=== PATIENT | female | born 1955 | race Two or more races ===

== ENCOUNTER 2020-02-23 13:29 | Inpatient (IN) | payer MEDICARE, MEDICAID ==
[~2020-02-23] VITALS: Ht 160 cm; Wt 88.0 kg
[2020-02-23] MEDS ORDERED: SODIUM CHLORIDE 0.9% 1,000 ML IV ONE (14:57)
[2020-02-23] MEDS ORDERED: KETOROLAC 30MG/ML VIAL IV STA (14:57)
[2020-02-23] MEDS ORDERED: ONDANSETRON HCL 4MG/2ML INJ IV STA (14:57)
[2020-02-23 15:27] LABS: BASOPHILS % 0.7 % (0.0-2.0); EOSINOPHILS % 1.3 % (0.0-5.0); HEMATOCRIT. 40.6 % (36.0-48.0); HEMOGLOBIN. 12.7 g/dL (12.0-16.0); LYMPHOCYTES % 36.9 % (20.0-50.0); MEAN CORPUSCULAR HEMOGLOBIN 22.3 pg (28.0-32.0); MEAN CORPUSCULAR VOLUME 71.3 fL (81.0-99.0); MEAN PLATELET VOLUME 9.3 fl (7.4-10.4); MONOCYTES % 4.6 % (2.0-8.0); NEUTROPHILS % 56.5 % (40.0-76.0); PLATELET 153 x1000/uL (130-400); RED BLOOD CELL COUNT 5.69 mill/uL (4.2-5.4); RED CELL DISTRIBUTION WIDTH 14.5 % (11.6-14.6)
[2020-02-23 15:30] LABS: CHLORIDE 104 mEq/L (98-107)
[2020-02-23 15:33] LABS: PARTIAL THROMBOPLASTIN TIME 28.7 sec (23.4-31.0); PROTHROMBIN TIME 11.3 sec (9.6-11.0)
[2020-02-23] MEDS ORDERED: IOHEXOL-350 100 ML BOTTLE ONE (16:53)
[2020-02-23] MEDS ORDERED: ASPIRIN 325MG EC TABLET PO ONE (18:00)
[2020-02-23] MEDS ORDERED: KETOROLAC 15MG/ML VIAL IV PRN (19:45)
[2020-02-23] MEDS ORDERED: ONDANSETRON HCL 4MG/2ML INJ IV PRN (19:45)
[2020-02-23 22:52] VITALS: BP 157/76
[2020-02-24] VITALS (14 sets, daily range): BP systolic 120–168; BP diastolic 62–88
[2020-02-24] MEDS: ACETAMINOPHEN 325MG TABLET PO PRN (01:29)
[2020-02-24] MEDS: ENOXAPARIN 40MG/0.4ML SYR SUBCUT SCH (08:43)
[2020-02-24] MEDS: ASPIRIN 81MG TABLET PO SCH (08:43)
[2020-02-24 08:50] LABS: CHLORIDE 104 mEq/L (98-107)
[2020-02-24 08:51] LABS: BASOPHILS % 0.4 % (0.0-2.0); EOSINOPHILS % 2.1 % (0.0-5.0); HEMATOCRIT. 41.2 % (36.0-48.0); LYMPHOCYTES % 36.4 % (20.0-50.0); MEAN CORPUSCULAR HEMOGLOBIN 22.3 pg (28.0-32.0); MEAN CORPUSCULAR VOLUME 70.9 fL (81.0-99.0); MEAN PLATELET VOLUME 9.4 fl (7.4-10.4); MONOCYTES % 7.1 % (2.0-8.0); PLATELET 147 x1000/uL (130-400); RED BLOOD CELL COUNT 5.81 mill/uL (4.2-5.4); RED CELL DISTRIBUTION WIDTH 14.4 % (11.6-14.6)
[2020-02-24 16:55] LABS: FOLIC ACID (FOLATE) SERUM 14.9 ng/mL (>5.38)
[2020-02-24] MEDS: AMITRIPTYLINE 10MG TABLET PO SCH (21:24)
[2020-02-24] MEDS: ZOLPIDEM TARTRATE 5MG TABLET PO PRN (21:24)
[2020-02-24 23:56] LABS: CLARITY URINE CLEAR (CLEAR); COLOR URINE YELLOW (YELLOW); KETONES URINE NEGATIVE (NEGATIVE); LEUKOCYTE ESTERASE URINE TRACE (NEGATIVE); NITRITE URINE NEGATIVE (NEGATIVE); OCCULT BLOOD URINE NEGATIVE (NEGATIVE); PH URINE 5.5 (4.5-8.0); PROTEIN URINE NEGATIVE (NEGATIVE); SPECIFIC GRAVITY URINE 1.011 (1.005-1.030); UROBILINOGEN URINE 0.2 E.U./dL (0.2-1.0)
[2020-02-25] VITALS (13 sets, daily range): BP systolic 103–174; BP diastolic 53–85
[2020-02-25 00:07] LABS: *AMPHETAMINES SCREEN URINE NEGATIVE (NEGATIVE); *BARBITURATES SCREEN URINE NEGATIVE (NEGATIVE); *BENZODIAZEPINES SCREEN URINE NEGATIVE (NEGATIVE); *COCAINE SCREEN URINE NEGATIVE (NEGATIVE); METHADONE URINE SCREEN NEGATIVE (NEGATIVE); OPIATES URINE SCREEN NEGATIVE (NEGATIVE); PHENCYCLIDINE URINE SCREEN NEGATIVE (NEGATIVE)
[2020-02-25 00:08] LABS: CANNABINOID URINE SCREEN NEGATIVE (NEGATIVE)
[2020-02-25] MEDS: ENOXAPARIN 40MG/0.4ML SYR SUBCUT SCH (09:08)
[2020-02-25] MEDS: ASPIRIN 81MG TABLET PO SCH (09:08)
[2020-02-25] MEDS: ACETAMINOPHEN 325MG TABLET PO PRN (20:22)
[2020-02-25] MEDS: AMITRIPTYLINE 10MG TABLET PO SCH (20:22)
[2020-02-25] MEDS: ZOLPIDEM TARTRATE 5MG TABLET PO PRN (20:27)
[2020-02-26] VITALS (12 sets, daily range): BP systolic 124–157; BP diastolic 65–103
[2020-02-26] MEDS: ACETAMINOPHEN 325MG TABLET PO PRN ×3 (06:16→21:21)
[2020-02-26] MEDS: ASPIRIN 81MG TABLET PO SCH (09:21)
[2020-02-26] MEDS: ENOXAPARIN 40MG/0.4ML SYR SUBCUT SCH (09:22)
[2020-02-26] MEDS: AMITRIPTYLINE 10MG TABLET PO SCH (21:22)
[2020-02-26] MEDS: ZOLPIDEM TARTRATE 5MG TABLET PO PRN (21:22)
[2020-02-26] MEDS: HYDRALAZINE HCL 25MG TABLET PO SCH (21:23)
[2020-02-27] VITALS: BP 118/62
[2020-02-27 02:00] VITALS: BP 117/67
[2020-02-27 04:00] VITALS: BP 115/64
[2020-02-27 06:01] VITALS: BP 136/78
[2020-02-27 09:31] LABS: BASOPHILS % 0.3 % (0.0-2.0); EOSINOPHILS % 2.4 % (0.0-5.0); HEMATOCRIT. 42.2 % (36.0-48.0); HEMOGLOBIN. 13.4 g/dL (12.0-16.0); LYMPHOCYTES % 42.8 % (20.0-50.0); MEAN CORPUSCULAR HEMOGLOBIN 22.5 pg (28.0-32.0); MEAN CORPUSCULAR VOLUME 70.9 fL (81.0-99.0); MEAN PLATELET VOLUME 9.5 fl (7.4-10.4); MONOCYTES % 6.1 % (2.0-8.0); NEUTROPHILS % 48.4 % (40.0-76.0); PLATELET 138 x1000/uL (130-400); RED BLOOD CELL COUNT 5.95 mill/uL (4.2-5.4); RED CELL DISTRIBUTION WIDTH 14.5 % (11.6-14.6)
[2020-02-27] MEDS: HYDRALAZINE HCL 25MG TABLET PO SCH (09:31)
[2020-02-27] MEDS: ASPIRIN 81MG TABLET PO SCH (09:31)
[2020-02-27] MEDS: ENOXAPARIN 40MG/0.4ML SYR SUBCUT SCH (09:31)
[2020-02-27 09:44] LABS: CHLORIDE 107 mEq/L (98-107)
[2020-02-27] MEDS ORDERED: ASPI-1160 PO (10:32)
[2020-02-27] MEDS ORDERED: AM10 PO (10:32)
[2020-02-27] MEDS ORDERED: HYDR-4134 PO (10:32)
[2020-02-27] MEDS ORDERED: MECL-183 MT (10:32)
== END 2020-02-27 13:26 | disposition home or self-care (01) | DRG 74 ==
LOC: ER 13:29 → 3WST 18:40 → EDBEDREQ 18:47 → ENRESERV 22:09
PROVIDERS: ADMIT Internal Medicine; ATTEND Internal Medicine
DX: G90.8 Other disorders of autonomic nervous system (principal); E87.1 Hypo-osmolality and hyponatremia; G43.909 Migraine, unspecified, not intractable, without status migrainosus; R00.1 Bradycardia, unspecified; I10 Essential (primary) hypertension; F41.8 Other specified anxiety disorders; R73.03 Prediabetes; M79.7 Fibromyalgia; I25.10 Atherosclerotic heart disease of native coronary artery without angina pectoris; Z87.891 Personal history of nicotine dependence; Z90.710 Acquired absence of both cervix and uterus
CPT/HCPCS: 36415; 70496; 70498; 70551; 71045; 80048; 80053; 80061; 80305; 81003; 82607; 82746; 83036; 83880; 84443; 84484; 85025; 93005; 93306; 96374; 97116; 97162; 99285; J1650; J1885; J2405; J7030; Q9967

== ENCOUNTER 2022-07-03 01:13 | Inpatient (IN) | payer MEDICARE, MEDICAID ==
[~2022-07-03] VITALS: Ht 160 cm; Wt 84.8 kg
[~2022-07-03 01:13] MED LIST: AMIT10TA7 PO; ASPI-1160 PO; HYDR-4134 PO; MECL-217 MT
[2022-07-03] MEDS ORDERED: SODIUM CHLORIDE 0.9% 1,000 ML IV ONE (02:15)
[2022-07-03 02:37] LABS: BASOPHILS % 0.2 % (0.0-2.0); LYMPHOCYTES % 51.4 % (20.0-50.0); MEAN CORPUSCULAR HEMOGLOBIN 21.6 pg (28.0-32.0); MEAN CORPUSCULAR VOLUME 73.4 fL (81.0-99.0); MEAN PLATELET VOLUME 8.7 fl (7.4-10.4); MONOCYTES % 5.3 % (2.0-8.0); NEUTROPHILS % 42.1 % (40.0-76.0); PLATELET 232 x1000/uL (130-400); RED BLOOD CELL COUNT 4.64 mill/uL (4.2-5.4); RED CELL DISTRIBUTION WIDTH 15.3 % (11.6-14.6)
[2022-07-03 02:51] LABS: PROTHROMBIN TIME 11.1 sec (9.6-11.0)
[2022-07-03 02:52] LABS: CHLORIDE 110 mEq/L (98-107)
[2022-07-03] MEDS ORDERED: SODIUM CHLORIDE 0.9% 1,000 ML IV NR (04:15)
[2022-07-03] MEDS ORDERED: IOHEXOL-350 100 ML BOTTLE ONE (04:32)
[2022-07-03 04:38] LABS: HEMATOCRIT 27.5 % (36.0-48.0); HEMOGLOBIN 8.5 g/dL (12.0-16.0)
[2022-07-03] MEDS ORDERED: MORPHINE SULFATE 2 MG/ML CPJ (NOT FOR IM USE) IV ONE (06:15)
[2022-07-03] MEDS ORDERED: NITROGLYCERIN 0.4MG TABLET SL SL PRN (07:00)
[2022-07-03] MEDS ORDERED: CLONIDINE 0.1MG TABLET PO PRN (07:00)
[2022-07-03] MEDS ORDERED: GUAIFENESIN 200MG/10ML SUGAR FREE UDC PO PRN (07:00)
[2022-07-03] MEDS ORDERED: MAGNESIUM/ALUMINUM HYDROXIDE/SIMETHICONE 30ML UDC PO PRN (07:00)
[2022-07-03] MEDS ORDERED: ACETAMINOPHEN 325MG TABLET PO PRN (07:00)
[2022-07-03] MEDS ORDERED: DOCUSATE SODIUM 100MG CAPSULE PO PRN (07:00)
[2022-07-03] MEDS ORDERED: ONDANSETRON HCL 4MG/2ML INJ IV PRN (07:00)
[2022-07-03] MEDS ORDERED: LORAZEPAM 0.5MG TABLET PO PRN (07:00)
[2022-07-03] MEDS ORDERED: IPRATROPIUM/ALBUTEROL 0.5-3(2.5)MG/3ML NEB NEB PRN (07:00)
[2022-07-03 07:30] LABS: ETHANOL BLOOD < 10 mg/dL; T4 FREE 0.95 ng/dL (0.76-1.46); TOTAL IRON BINDING CAPACITY 253 ug/dL (250-450)
[2022-07-03 07:50] LABS: FOLIC ACID (FOLATE) SERUM 13.1 ng/mL (>5.38)
[2022-07-03] MEDS ORDERED: PANTOPRAZOLE SODIUM 40 MG/VIAL IV SCH (09:00)
[2022-07-03] MEDS: PANTOPRAZOLE SODIUM 40 MG/VIAL IV SCH ×2 (09:50→12:59)
[2022-07-03 09:55] LABS: TOTAL IRON BINDING CAPACITY 276 ug/dL (250-450)
[2022-07-03 10:30] VITALS: BP 139/74
[2022-07-03] MEDS ORDERED: ATOR20TA65 PO (11:49)
[2022-07-03] MEDS ORDERED: ATOR40TA70 PO (11:49)
[2022-07-03] MEDS ORDERED: GABA-529 PO (11:49)
[2022-07-03] MEDS ORDERED: AMLO10TA80 PO (11:49)
[2022-07-03] MEDS ORDERED: HYDR-4005 PO (11:52)
[2022-07-03 11:59] VITALS: BP 114/73
[2022-07-03 12:41] LABS: HEMATOCRIT 29.2 % (36.0-48.0); HEMOGLOBIN 9.1 g/dL (12.0-16.0)
[2022-07-03] MEDS: DILTIAZEM HCL 60MG TABLET PO SCH ×3 (12:59→23:58)
[2022-07-03] MEDS: KETOROLAC 15MG/ML VIAL IV PRN (18:18)
[2022-07-03 18:23] VITALS: BP 120/61
[2022-07-03 20:00] VITALS: BP 89/46
[2022-07-03 20:10] LABS: HEMATOCRIT 25.1 % (36.0-48.0); HEMOGLOBIN 7.7 g/dL (12.0-16.0)
[2022-07-03] MEDS ORDERED: ZOLPIDEM TARTRATE 5MG TABLET PO PRN (22:00)
[2022-07-03] MEDS: MIDODRINE HCL 5MG TABLET PO SCH (22:28)
[2022-07-04] VITALS (9 sets, daily range): BP systolic 91–128; BP diastolic 44–63
[2022-07-04 00:52] LABS: HEMATOCRIT 21.9 % (36.0-48.0)
[2022-07-04] MEDS: SODIUM CHLORIDE 0.9% 1,000 ML IV SCH ×3 (01:00→21:06)
[2022-07-04 01:14] LABS: HEMOGLOBIN 6.9 g/dL (12.0-16.0)
[2022-07-04] MEDS: DILTIAZEM HCL 60MG TABLET PO SCH ×3 (06:00→17:15)
[2022-07-04 08:49] LABS: BASOPHILS % 0.2 % (0.0-2.0); EOSINOPHILS % 0.7 % (0.0-5.0); HEMATOCRIT. 27.6 % (36.0-48.0); HEMOGLOBIN. 8.8 g/dL (12.0-16.0); LYMPHOCYTES % 33.7 % (20.0-50.0); MEAN CORPUSCULAR VOLUME 78.2 fL (81.0-99.0); MEAN PLATELET VOLUME 8.9 fl (7.4-10.4); MONOCYTES % 6.5 % (2.0-8.0); NEUTROPHILS % 58.9 % (40.0-76.0); PLATELET 149 x1000/uL (130-400); RED BLOOD CELL COUNT 3.53 mill/uL (4.2-5.4); RED CELL DISTRIBUTION WIDTH 18.5 % (11.6-14.6)
[2022-07-04 09:23] LABS: CHLORIDE 113 mEq/L (98-107); PHOSPHORUS 4.1 mg/dL (2.5-4.9)
[2022-07-04] MEDS: PANTOPRAZOLE SODIUM 40 MG/VIAL IV SCH ×2 (09:47→21:05)
[2022-07-04] MEDS: MIDODRINE HCL 5MG TABLET PO SCH ×3 (09:47→17:44)
[2022-07-04] MEDS: ACETAMINOPHEN 325MG TABLET PO PRN (15:35)
[2022-07-04 16:09] LABS: HEMATOCRIT 25.3 % (36.0-48.0)
[2022-07-04] MEDS: KETOROLAC 15MG/ML VIAL IV PRN (21:31)
[2022-07-05] VITALS (14 sets, daily range): BP systolic 102–155; BP diastolic 53–77
[2022-07-05] MEDS: DILTIAZEM HCL 60MG TABLET PO SCH ×5 (05:32→17:14)
[2022-07-05 05:42] LABS: CHLORIDE 115 mEq/L (98-107)
[2022-07-05] MEDS: SODIUM CHLORIDE 0.9% 1,000 ML IV SCH (05:57)
[2022-07-05 06:26] LABS: BASOPHILS % 0.3 % (0.0-2.0); EOSINOPHILS % 1.3 % (0.0-5.0); HEMATOCRIT. 22.7 % (36.0-48.0); HEMOGLOBIN. 7.3 g/dL (12.0-16.0); LYMPHOCYTES % 33.1 % (20.0-50.0); MEAN CORPUSCULAR HEMOGLOBIN 24.6 pg (28.0-32.0); MEAN CORPUSCULAR VOLUME 76.5 fL (81.0-99.0); MEAN PLATELET VOLUME 8.8 fl (7.4-10.4); MONOCYTES % 7.1 % (2.0-8.0); NEUTROPHILS % 58.2 % (40.0-76.0); PLATELET 119 x1000/uL (130-400); RED BLOOD CELL COUNT 2.97 mill/uL (4.2-5.4); RED CELL DISTRIBUTION WIDTH 18.5 % (11.6-14.6)
[2022-07-05] MEDS: PANTOPRAZOLE SODIUM 40 MG/VIAL IV SCH ×2 (08:59→21:47)
[2022-07-05] MEDS: KETOROLAC 15MG/ML VIAL IV PRN (09:00)
[2022-07-05] MEDS: MIDODRINE HCL 5MG TABLET PO SCH ×3 (09:00→17:00)
[2022-07-05] MEDS ORDERED: BISACODYL 5MG TABLET PO SCH ×2 (16:30→20:30)
[2022-07-05] MEDS ORDERED: METOCLOPRAMIDE HCL 10MG/2ML VIAL IV SCH ×2 (16:30→20:30)
[2022-07-05] MEDS ORDERED: SORBITOL 70% SOLN 30ML PO SCH ×2 (17:00→21:00)
[2022-07-06] VITALS: BP 104/64
[2022-07-06] MEDS: SODIUM CHLORIDE 0.9% 1,000 ML IV SCH ×3 (00:02→23:37)
[2022-07-06 04:00] VITALS: BP 96/54
[2022-07-06] MEDS: DILTIAZEM HCL 60MG TABLET PO SCH ×4 (05:59→18:00)
[2022-07-06 06:42] LABS: BASOPHILS % 0.1 % (0.0-2.0); HEMATOCRIT. 27.4 % (36.0-48.0); LYMPHOCYTES % 21.6 % (20.0-50.0); MEAN CORPUSCULAR VOLUME 79.5 fL (81.0-99.0); MEAN PLATELET VOLUME 8.8 fl (7.4-10.4); MONOCYTES % 4.9 % (2.0-8.0); NEUTROPHILS % 73.4 % (40.0-76.0); PLATELET 136 x1000/uL (130-400); RED BLOOD CELL COUNT 3.45 mill/uL (4.2-5.4); RED CELL DISTRIBUTION WIDTH 18.4 % (11.6-14.6)
[2022-07-06 06:50] LABS: PARTIAL THROMBOPLASTIN TIME 22.7 sec (23.4-31.0); PROTHROMBIN TIME 11.2 sec (9.6-11.0)
[2022-07-06 07:09] LABS: CHLORIDE 116 mEq/L (98-107)
[2022-07-06 08:00] VITALS: BP 109/65
[2022-07-06] MEDS: PANTOPRAZOLE SODIUM 40 MG/VIAL IV SCH ×2 (09:22→21:24)
[2022-07-06] MEDS: MIDODRINE HCL 5MG TABLET PO SCH ×3 (09:23→17:00)
[2022-07-06 12:00] VITALS: BP 126/55
[2022-07-06] MEDS ORDERED: PROPOFOL 200MG/20ML VIAL IV ONE (14:42)
[2022-07-06] MEDS ORDERED: DEXAMETHASONE 4MG/ML 1ML VIAL ONE (14:47)
[2022-07-06] MEDS ORDERED: ONDANSETRON HCL 4MG/2ML INJ ONE (14:47)
[2022-07-06] MEDS ORDERED: MIDAZOLAM HCL 2 MG/2 ML VIAL ONE (14:47)
[2022-07-06] MEDS ORDERED: FENTANYL CITRATE/PF 50MCG/ML 2ML VIAL ONE (14:51)
[2022-07-06 17:40] VITALS: BP 122/59
[2022-07-06 20:00] VITALS: BP 126/70
[2022-07-07] VITALS (10 sets, daily range): BP systolic 100–125; BP diastolic 46–74
[2022-07-07] MEDS: DILTIAZEM HCL 60MG TABLET PO SCH ×5 (06:00→23:37)
[2022-07-07] MEDS: MIDODRINE HCL 5MG TABLET PO SCH ×3 (09:00→17:00)
[2022-07-07] MEDS: PANTOPRAZOLE SODIUM 40 MG/VIAL IV SCH ×2 (10:13→20:29)
[2022-07-07 11:32] LABS: CHLORIDE 110 mEq/L (98-107)
[2022-07-07 11:37] LABS: BASOPHILS % 0.1 % (0.0-2.0); HEMATOCRIT. 22.5 % (36.0-48.0); HEMOGLOBIN. 7.4 g/dL (12.0-16.0); LYMPHOCYTES % 10.2 % (20.0-50.0); MEAN CORPUSCULAR HEMOGLOBIN 26.6 pg (28.0-32.0); MEAN CORPUSCULAR VOLUME 81.2 fL (81.0-99.0); MEAN PLATELET VOLUME 9.1 fl (7.4-10.4); MONOCYTES % 3.7 % (2.0-8.0); PLATELET 141 x1000/uL (130-400); RED BLOOD CELL COUNT 2.77 mill/uL (4.2-5.4)
[2022-07-07] MEDS: SODIUM CHLORIDE 0.9% 1,000 ML IV SCH (13:32)
[2022-07-08] VITALS: BP 119/60
[2022-07-08] MEDS: SODIUM CHLORIDE 0.9% 1,000 ML IV SCH ×2 (01:56→05:00)
[2022-07-08 05:50] VITALS: BP 110/58
[2022-07-08] MEDS: DILTIAZEM HCL 60MG TABLET PO SCH ×2 (06:00→13:45)
[2022-07-08 06:47] LABS: HEMATOCRIT 24.7 % (36.0-48.0); MEAN CORPUSCULAR HEMOGLOBIN 26.3 pg (28.0-32.0); MEAN CORPUSCULAR VOLUME 80.9 fL (81.0-99.0); PLATELET 154 x1000/uL (130-400); RED BLOOD CELL COUNT 3.05 mill/uL (4.2-5.4); RED CELL DISTRIBUTION WIDTH 18.4 % (11.6-14.6)
[2022-07-08 07:13] LABS: CHLORIDE 114 mEq/L (98-107)
[2022-07-08 08:00] VITALS: BP 136/86
[2022-07-08] MEDS: MIDODRINE HCL 5MG TABLET PO SCH ×2 (09:00→13:00)
[2022-07-08] MEDS: PANTOPRAZOLE SODIUM 40 MG/VIAL IV SCH (10:47)
[2022-07-08] MEDS: ACETAMINOPHEN 325MG TABLET PO PRN (10:57)
[2022-07-08 12:00] VITALS: BP 128/74
[2022-07-08 16:00] VITALS: BP 129/76
[2022-07-08 16:16] VITALS: BP 135/74
== END 2022-07-08 16:50 | disposition home or self-care (01) | DRG 378 ==
LOC: ER 01:13 → 6WST 04:47 → SUPCPDRO 06:43 → ENRESERV 09:55
PROVIDERS: ADMIT Internal Medicine; ATTEND Internal Medicine
PROC: 30233N1 Transfusion of Nonautologous Red Blood Cells into Peripheral Vein, Percutaneous Approach (ICD-10-PCS; principal; 2022-07-03)
PROC: 0DJD8ZZ Inspection of Lower Intestinal Tract, Via Natural or Artificial Opening Endoscopic (ICD-10-PCS; 2022-07-06)
DX: K57.31 Diverticulosis of large intestine without perforation or abscess with bleeding (principal); D62 Acute posthemorrhagic anemia; E87.2 Acidosis; K55.21 Angiodysplasia of colon with hemorrhage; D50.9 Iron deficiency anemia, unspecified; K44.9 Diaphragmatic hernia without obstruction or gangrene; G43.909 Migraine, unspecified, not intractable, without status migrainosus; I10 Essential (primary) hypertension; M79.7 Fibromyalgia; Z20.822 Contact with and (suspected) exposure to COVID-19; K92.1 Melena; K21.9 Gastro-esophageal reflux disease without esophagitis; M48.00 Spinal stenosis, site unspecified; R73.03 Prediabetes; G89.29 Other chronic pain; Z90.710 Acquired absence of both cervix and uterus; Z90.49 Acquired absence of other specified parts of digestive tract; Z79.899 Other long term (current) drug therapy; Z87.11 Personal history of peptic ulcer disease; Z79.82 Long term (current) use of aspirin; Z79.84 Long term (current) use of oral hypoglycemic drugs
CPT/HCPCS: 36415; 71045; 74174; 78278; 80048; 80053; 80320; 82607; 82728; 82746; 83036; 83540; 83550; 83605; 83735; 84100; 84439; 84443; 85014; 85018; 85025; 85027; 85044; 86850; 86900; 86920; 87426; 93970; 99291; A9560; C9113; C9803; J1100; J1885; J2250; J2270; J2405; J2704; J2765; J3010; J7030; P9016; Q9967; G0480